=== PATIENT | male | born 1990 | race Caucasian/White ===

== ENCOUNTER 2018-05-05 17:27 | Emergency (ER) | payer MEDICAID ==
[2018-05-05] MEDS: KETOROLAC 30 MG INJ IM (19:16)
== END 2018-05-05 20:36 | disposition home or self-care (01) ==
LOC: FTE 17:27
DX: S60.412A Abrasion of right middle finger, initial encounter (principal); W01.119A Fall on same level from slipping, tripping and stumbling with subsequent striking against unspecified sharp object, initial encounter; Y92.9 Unspecified place or not applicable
CPT/HCPCS: 29130; 73130-RT; 73140; 96372; 99284-25